=== PATIENT | female | born 1955 | race Caucasian/White ===

== ENCOUNTER 2025-07-23 10:37 | Day surgery (SDC) | payer MEDICARE, OTHER, SELFPAY ==
[2025-07-23] VITALS (15 sets, daily range): BP systolic 115–143; BP diastolic 57–87; PULSE 53–69; RESP 12–16; TEMP 36–37.1; O2SAT 97–100; BMI 25.2
[2025-07-23] MEDS: LACTATED RINGERS 1000 ML 1,000 ML 100 ML IV ×2 (11:20→15:18)
[2025-07-23] MEDS: SODIUM CHLORIDE 0.9 % (FLUSH) 10 ML SYRINGE IVF (11:20)
--- NOTE | 2025-07-23 12:33 | SUR.PREOP ---
TIME?OUT:?1235 PT/RN/MDA?VERIFICATION?OF?SURGICAL?SITE-RIGHT ACHILLES, NERVE BLOCK PROCEDURE,?AND?CONSENT OBTAINED?PRIOR?TO?INVASIVE?PROCEDURE.
[2025-07-23] MEDS: MIDAZOLAM HCL 1 MG/ML inj IVP (12:37)
--- NOTE | 2025-07-23 13:13 | W.PM.NB ---
Nerve Block Nerve Block Time Seen by Provider: 12:40 Date Seen: 07/23/25 Type of block requested by surgeon for post-operative analgesia: popliteal Side: right Time out performed: Yes Verification of patient name: Yes Verification of date of : Yes Site marking: site marked Name of person performing procedure: Jonathan Continuous monitoring Was continuous monitoring of O2 sat, B/P, air sampling and monitoring, recorded every 15 minutes?: Yes Procedure Checklist: sterile prep, needles and gloves Ultrasound guided. Images saved: Yes Medications given in 5ml increments after negative aspiration: Marcaine %: 0.25 mL: 10 and Exparel mL: 10 Patient tolerated procedure well: Yes Additional comments: Needle noted adjacent to nerve Block Charges Block Charge (with Pro Fee): Sciatic Nerve Use of Ultrasound Machine for Block: Yes- US Guidance/pain block
--- NOTE | 2025-07-23 13:15 | P.ANES_ITS ---
Anesthesia Charges Start Date/Time Anesthesia Start Date: 07/23/25 Anesthesia Start Time: 12:46 Stop Date/Time Anesthesia Stop Date: 07/23/25 Anesthesia Stop Time: 16:05 Coding CPT Codes CPT Codes: ANESTH ACHILLES TENDON SURG - 23938 ([id number]) P2 - PATIENT W/MILD SYST DISEASE, QK - CONTRACTING EXECUTIVE 2-4 CNCRNT ANES PROC, QX - HEAT AND FROST INSULATOR SVC W/ MD MED DIRECTION
--- NOTE | 2025-07-23 13:15 | W.ANESCHARGE ---
Anesthesia Charges Start Date/Time Anesthesia Start Date: 07/23/25 Anesthesia Start Time: 12:46 Stop Date/Time Anesthesia Stop Date: 07/23/25 Anesthesia Stop Time: 16:05 Coding CPT Codes CPT Codes: ANESTH ACHILLES TENDON SURG - 10093 ([id number]) P2 - PATIENT W/MILD SYST DISEASE, QK - FELLER SEAM OPERATOR 2-4 CNCRNT ANES PROC, QX - INDUCTION BRAZER SVC W/ MD MED DIRECTION
--- NOTE | 2025-07-23 15:40 | SUR.OPER ---
PATIENT QUESTIONS ANSWERED SATISFACTORILY PREOPERATIVELY.? PATIENT BROUGHT TO OR #1 PER CART after the block.? Patient positioned prone on OR #1 bed.? The perioperative?team supported arms bilaterally on arm boards.? Final approval of positioning by surgeon.
--- NOTE | 2025-07-23 15:42 | SUR.OPER ---
SURGEON DECLINES OFFER TO SEND EXCISED TISSUE TO PATHOLOGY.
--- NOTE | 2025-07-23 16:10 | P.ANES_ITS ---
Anesthesia Charges Start Date/Time Anesthesia Start Date: 07/23/25 Anesthesia Start Time: 12:46 Stop Date/Time Anesthesia Stop Date: 07/23/25 Anesthesia Stop Time: 16:05 Coding CPT Codes CPT Codes: ANESTH ACHILLES TENDON SURG - 48965 ([id number]) P2 - PATIENT W/MILD SYST DISEASE, QX - FORESTRY AIDE SVC W/ MD MED DIRECTION, QK - OFFAL BALER 2-4 CNCRNT ANES PROC
--- NOTE | 2025-07-23 16:10 | W.ANESCHARGE ---
Anesthesia Charges Start Date/Time Anesthesia Start Date: 07/23/25 Anesthesia Start Time: 12:46 Stop Date/Time Anesthesia Stop Date: 07/23/25 Anesthesia Stop Time: 16:05 Coding CPT Codes CPT Codes: ANESTH ACHILLES TENDON SURG - 36310 ([id number]) P2 - PATIENT W/MILD SYST DISEASE, QX - EMT/DISPATCHER SVC W/ MD MED DIRECTION, QK - ASSISTANT IN NURSING 2-4 CNCRNT ANES PROC
--- NOTE | 2025-07-24 13:21 | W.PODPROC_ITS ---
Date of Procedure: 07/23/25 Surgeon: Adria Salcedo DPM Co-Surgeon: Assist: Dr. Fanny Cruz DPM Pre-op Diagnosis: Right Achilles rupture Hyperostosis right calcaneus Post-op Diagnosis: Same Type of Procedure: 1. Achilles rupture repair, right 2. FHL tendon transfer, right 3. Partial excision calcaneus, right 4. Application of posterior splint, right Indications: Right achilles tendon rupture with loss of plantarflexion strength and pain present Procedure Description: The patient was brought into the operating room and anesthesia then performed general anesthesia with oral endotracheal intubation. A well padded and appropriately sized thigh tourniquet was applied to their operative lower extremity. The patient was rolled onto the operating room table into the prone position and all osseous prominences appropriately padded. The operated lower extremity was then prepped and draped from toes to knee in the usual aseptic fashion. Antibiotic prophylaxis was infiltrated prior to operative intervention. A TIME-OUT was performed and documented. Attention was directed to the posterior aspect of the right achilles and calcaneus. The medial and lateral borders of the Achilles tendon were palpated and marked with a pen. We then mapped out our surgical incision site over the posterior aspect of the patient's leg along the medial border of the achilles tendon before curving to the lateral aspect of the calcaneus distally as to avoid the sural nerve. Using a sharp #15 blade, dissection was made through the skin and carried deep through subcutaneous tissue, taking care to retract all vital neural and vascular structures. Full-thickness flaps were raised over the level of the paratenon to expose the tendon in its entirety. Intraoperative inspection revealed a complete avulsion-type rupture of the Achilles tendon with no distal attachment to the calcaneus. There was no bony avulsion fragment, but a significantly prominent posterior calcaneal hyperostosis was noted at the typical Achilles insertion site. Dissection was then carried out to expose the hyperostosis/exostosis completely. A combination of #111 saw blade and osteotome were then used to resect the exostosis. A hand rasp was then utilized for fine debridement of the posterior calcaneus to allow for a flat surface to access for placement of our bone anchors. Next, the Achilles paratenon was incised in linear fashion (and tagged for later repair) and the ruptured distal end of the Achilles tendon was evaluated and trimmed of damaged tissue back to a healthy level. The rupture gap measured approximately 4 cm. Due to the rupture gap, it was then decided to proceed with a flexor hallucis longus tendon transfer to help strengthen the repair. The deep leg fascia was incised and the flexor hallucis longus (FHL) muscle and tendon we re identified. The tendon was carefully transected at the level of the tarsal tunnel while taking caution to prevent any injury to the nearby neurovascular structures. Using the FHL tendon transfer arthrex set, a drill hole was made within the dorsal, central, posterior aspect of the calcaneus from dorsal to plantar under intra-operative image intensification. The tendon end was tagged and was passed through the drill hole. While holding the ankle in plantarflexion, the interference screw was then secured within the drill hole which maintained the tendon under appropriate tension. Next, the distal segment of the Achilles tendon was then secured with fiberwire suture using a modified Krackow locking suture technique with care taken during passage of the needle and suture to avoid trauma to the Sural nerve and lesser Saphenous vein throughout the length of the repair. The proximal Achilles tendon was then mobilized distally with traction for several minutes time to try and restore appropriate muscle tension and length. At this time, The Arthrex Speed- Bridge system was then employed to secure the distal Achilles tendon onto the posterior-inferior calcaneus with the foot held in plantarflexion/equinus. This was deemed solid and allowed for complete security of the Achilles tendon to the calcaneus and was verified both with direct visualization and intra-operative FluoroScan imaging. The flexor hallucis longus muscle and tendon were then secured to the Achilles tendon repair with absorbable suture to provide additional strength and vascularity to the repair. The surgical sites were copiously irrigated with sterile saline and hemostasis obtained with electrocautery. The paratenon and deep tissues were approximated with absorbable suture and the skin edges were remodeled and re-approximated without tension using non-absorbable sutures. A well padded sterile dressing was then applied from toes to knee with the addition of a plaster posterior bolster dressing maintaining the foot in gravity equinus relative to the lower leg. The patient was successfully reversed of general anesthesia and transferred to the recovery area with their vital signs stable and neurovascular status intact to their operative lower extremity. A dry sterile dressing consisting of xeroform nonadhering dressing, gauze, cast padding, ABD pads, gauze roll was applied from forefoot to the knee in a modified Anmol Singleton dressing. Next, application of a fiberglass posterior splint was performed avoiding pressure to the plantar metatarsal heads and posterior heel/calf while maintaining the foot in a neutral position to the lower leg. The splint was held in place with the use of a gauze roll and Mike bandage. All sponge and instrument counts were correct at the completion of the surgery as well as prior to closure of deep tissue and skin. The patient was transferred from the operating room to the post-anesthesia care unit with vital signs stable and vascular status intact to the operative lower extremity. The patient appeared to tolerate both the procedure and anesthesia well. Anesthesia: GETA Hemostasis: thigh (130 minutes of well padded tourniquet time inflated to 300mmHg) Estimated blood loss (mL): 15 Provider Operated C-arm: Accumulated dose of 0.377 mGy and total fluoro time of 00:00:26 Implants: Arthrex speedbridge system Arthrex interference screw Specimens: none sent Disposition: PACU
== END 2025-07-23 17:56 | disposition home or self-care (01) ==
PROVIDERS: PCP Nurse Practitioner Family; Visit Provider Podiatrist
PROC: (CPT 27650; principal; 2025-07-23 12:00)
PROC: (CPT 28300; 2025-07-23 12:00)
DX: S86.011A Strain of right Achilles tendon, initial encounter (principal); M85.871 Other specified disorders of bone density and structure, right ankle and foot; G89.18 Other acute postprocedural pain; E11.42 Type 2 diabetes mellitus with diabetic polyneuropathy
CPT/HCPCS: 27650; 27691; 28118; 01472; 64445; 73600; 76000; 76942; 82962; C1713; J0665; J0666; J0690; J2250; J2371; J2704; J3010; J3490; J7120